=== PATIENT | male | born 1970 | race Caucasian/White ===

== ENCOUNTER → 2022-09-29 14:02 | Outpatient (REF) | payer OTHER, SELFPAY ==
--- NOTE | 2022-09-29 14:11 | CA_ITS ---
Transthoracic Echocardiogram Amended Patient (Last, First, Middle): Max Perry, Gender: Male Date of : 1970 Age: 52 Procedure Date: 09/29/2022 Procedure Type: Transthoracic Echocardiogram Location: [facility] Height: 172.72 cm Weight: 83.92 kg BSA: 1.98 m2 Heart Rate: bpm BP: 110 / 72 mmHg Contact Center Professional: VITALY Referring MD: Catherine Valero MD Lead Software Tester: Juan Diego Garza MD Symptoms: TIA G45.3 Study Quality: Adequate ECG Rhythm: Bradycardia Conclusions: - 1. Normal LV systolic function 2. Normal cardiac valvular Dopplers 3. Normal RV systolic pressure 4. No gross pericardial effusion Findings Left Ventricle Normal left ventricular size, thickness, and systolic function. The visually estimated ejection fraction is between 60-65%. Spectral Doppler is indicative of a normal filling pattern. Peak GLS is -18.2%, within normal limits. Right Ventricle Normal right ventricular cavity size and systolic function. Atria The left atrium is likely dilated. There is no evidence of interatrial shunt by agitated saline. The right atrium is normal in size. Aortic Valve Normal aortic valve structure and function. There is no aortic valve stenosis. There is no aortic valve regurgitation. Mitral Valve Normal mitral valve structure and function. There is trace mitral valve regurgitation. There is no mitral valve stenosis. Pulmonic Valve The pulmonic valve is likely normal. Tricuspid Valve Normal tricuspid valve structure. There is trace tricuspid valve regurgitation. The right ventricular systolic pressure is normal. The right ventricular systolic pressure is 19 mmHg. Normal right atrial pressure. There is no evidence of pulmonary hypertension. Great Vessels All visible segments of the aorta are normal in size. The pulmonary artery was not well visualized. Venous The inferior vena cava is normal in size and collapses greater than 50% with inspiration. Pericardium/Pleural There is no evidence of pericardial effusion. Prior Study Comparison No prior study available for comparison. Recommendations, Care & Conclusions Consider a JAMES if clinically appropriate. Measurements 2D Linear Measurements IVSd: 1.06 0.6-0.9/0.6-1.0 cm LVIDd: 4.96 3.9-5.3/4.2-5.9 cm LVIDd Index: 2.51 2.4-3.2/2.2-3.1 cm/m2 LVIDs: 3.40 2.0-3.6 cm LVPWd: 0.89 0.7-1.1 cm LA Diam: 3.10 2.7-3.8/3.0-4.0 cm LAIDs Index: 1.57 1.5-2.3 cm/m2 LV Mass: 216.08 67-162/88-224 g LV Mass Index: 109.13 43-95/49-115 g/m2 LVOT Diam: 2.00 3.0+(-)1.3 cm 2D Volumes LA Vol: 32.90 2D Systolic Function EF 4C: 61.80 >55% EF 2C: 65.40 >55% EF BiP: 63.20 >55% Mitral Valve MV Pk E: 0.79 MV PK A: 0.41 MV Decel Time: 251.00 E/A: 1.90 E'Lateral: 16.20 E'Medial: 11.00 E/E' Med: 7.20 E/E' Lat: 4.90 PHT: 73.00 MVA PHT: 3.01 Decel Coles: 3.14 Aortic Valve AoV Pk Ramesh: 1.26 AoV Mn Ramesh: 0.93 AoV VTI: 0.31 AoV Pk Grad: 6.00 Aov Mn Grad: 4.00 MABEL Cont.VTI: 2.46 LVOT LVOT Pk Ramesh: 1.11 LVOT Mn Ramesh: 0.77 LVOT VTI: 0.25 LVOT Pk Grad: 5.00 LVOT Mn Grad: 3.00 LVOT Diam: 2.00 LVOT Area: 3.14 Diastolic Function MV Pk E: 0.79 MV Pk A: 0.41 E/A: 1.90 E'Medial: 11.00 E/E' Med: 7.20 E' Laterial: 16.20 E/E' Lat: 4.90 Right Ventricle TAPSE (mm): 28.70 TVS' Ramesh: 13.90 Tricuspid Valve TR Pk Ramesh: 2.02 TR Pk Grad: 16.00 RA Press: 3.00 RVSP: 19.00 Great Vessels Aorta Sinus of Valsalva: 3.08 2.0-3.[address] Ridge: 2.70 1.7-3.4 cm Ao Asc: 3.40 2.1-3.4 cm Updated in Other Vendor System with Status of Final Juan Diego Garza MD electronically signed on 09/29/2022 3:43:33 PM with status of Final
== END ==
LOC: HO.CARD 14:02
PROVIDERS: Visit Provider Internal Medicine
DX: G45.3 Amaurosis fugax (principal); G45.9 Transient cerebral ischemic attack, unspecified
CPT/HCPCS: 93306; 93356